=== PATIENT | male | born 1965 | race Caucasian/White ===

== ENCOUNTER → 2016-12-04 | Outpatient (CLI) | payer BC ==
--- NOTE | 2016-12-04 16:44 | KCIC ---
CHEST PA LATERAL, RIBS LEFT, THORACIC SPINE 3V History: Acute left-sided thoracic back pain. Left rib pain. Comparison: None. Findings: The cardiomediastinal silhouette is normal. Pulmonary vasculature is normal. There is right middle lobe airspace disease. No pleural effusion or pneumothorax is seen. No acute left rib fracture. A nondisplaced or subtle rib fracture could be obscured. Minimal right convexity thoracic scoliosis. The vertebral body height and alignment are maintained on the lateral view. The paravertebral stripes are submitted. The prevertebral soft tissues are normal on the swimmer's view. IMPRESSION: 1. Right middle lobe airspace disease may be pneumonia or atelectasis. Correlate to any respiratory symptoms. Radiographic follow-up to resolution is recommended. 2. No acute vertebral body compression fracture or rib fracture. Electronically signed by: Pranav Pham MD (12/04/2016 4:41 PM)
== END | disposition home or self-care (01) ==
LOC: KCIC 15:15
PROVIDERS: ATTEND Physician Assistant Medical
DX: M41.34 Thoracogenic scoliosis, thoracic region (principal)
CPT/HCPCS: 71020; 71100; 72072

== ENCOUNTER → 2016-12-25 | Outpatient (CLI) | payer BC ==
--- NOTE | 2016-12-25 12:11 | KCIC ---
CHEST PA LATERAL History: Productive cough and left lower rib pain. Abnormal prior chest radiograph. Comparison: Two-view chest December 04, 2016. Findings: The cardiomediastinal silhouette is normal. Pulmonary vasculature is normal. Right middle lobe airspace disease is not significant changed. Lungs are otherwise clear. No pleural effusion or pneumothorax is seen. There is no acute bone abnormality. IMPRESSION: No significant change of right middle lobe pneumonia or atelectasis. Radiographic follow up to resolution is recommended to exclude malignancy. Electronically signed by: Pranav Pham MD (12/25/2016 12:08 PM)
== END | disposition home or self-care (01) ==
LOC: KCIC 11:48
PROVIDERS: ATTEND Physician Assistant Medical
DX: R05 Cough (principal); R07.81 Pleurodynia
CPT/HCPCS: 71020

== ENCOUNTER → 2016-12-27 | Outpatient (CLI) | payer BC ==
--- NOTE | 2016-12-27 16:08 | KCIC ---
AP lateral lumbar spine Indication:Low back pain Findings: Alignment and curvature are within normal limits. No compression deformities are identified. The disc space heights are well-maintained. The sacroiliac joints are symmetric, open, and corticated. Impression: No compression fracture or malalignment. Electronically signed by: Morgan Hallman MD (12/27/2016 4:05 PM)
--- NOTE | 2016-12-27 16:14 | KCIC ---
AP and lateral thoracic spine Indication: Back pain Findings: Alignment and curvature of the thoracic spine are within normal limits. Evaluation of the cervicothoracic junction is limited due to overlying shoulder anatomy. No compression fractures are identified. The disc space heights are well-preserved. Visualized lung ward are clear. Impression: Unremarkable exam of the thoracic spine. Electronically signed by: Morgan Hallman MD (12/27/2016 4:11 PM)
== END | disposition home or self-care (01) ==
LOC: KCIC 15:19
PROVIDERS: ATTEND Physician Assistant Medical
DX: M54.5 Low back pain (principal); M54.6 Pain in thoracic spine
CPT/HCPCS: 72072; 72110

== ENCOUNTER → 2017-01-03 | Outpatient (CLI) | payer BC ==
[~2017-01-03] MED LIST: IOHEXOL 300 MG/ML 100ML VIAL. IV ONE
--- NOTE | 2017-01-03 11:45 | KCIC ---
CT chest with contrast History: . Abnormal chest x-ray. Hemoptysis for one week. Smoker. Back pain for one month. Technique: After bolus of intravenous contrast, CT imaging was performed of the chest. Multiplanar reconstructions were obtained. Exposure: One or more of the following individualized dose reduction techniques were utilized for this examination: 1. Automated exposure control 2. Adjustment of the mA and/or kV according to patient size 3. Use of iterative reconstruction technique. Findings: Thoracic aorta: No evidence of an aneurysm or dissection. Great vessel origins:Patent Pulmonary arteries:Limited visualization due to technique, but no obvious large central embolism. Thyroid gland:Visualized aspect is unremarkable. Heart: No significant pericadial effusion. Pleural spaces: No significant effusion Right hilar mass is identified, measuring about 3.5 cm diameter. There is some soft tissue abnormality extends more peripherally into the right lower lobe may represent some additional lymphoid tissue. Small subcarinal mass or enlarged lymph node, is continuous with the hilar mass. In total, this measures about 7.5 cm maximum diameter. Mild consolidation of lung in the right lower lobe anteriorly. This may be postobstructive, as there is narrowing of the lower lobe bronchi as they extend through the right hilar mass described above. There is also attenuation of right lower lobe pulmonary arteries as they are directly surrounded by the mass. Mild posterior lower lobe atelectasis bilaterally. Bones: There is a left spinal mass, which destroys the posterior and left lateral aspect of the approximate T9 vertebral body, the left posterior elements, the left spinous process and the medial left rib. This has an aggressive appearance. The mass itself measures 4.7 cm diameter. This encroaches into the spinal canal and probably directly involves the spinal cord. Smaller destructive lesion is partially visualized at the approximate L2 vertebral body, which encroaches upon the anterior spinal canal. This also has an aggressive appearance. Small osteolytic lesion at the right first rib. Upper abdomen: Limited slices were obtained through the upper abdomen. Small lesion at the left kidney measures 15 mm and measures water density compatible with a cyst. Impression: 1. Right hilar and subcarinal mass. Primary malignant tumor or secondary metastatic lymph node neoplasm is the leading concern. Right lower lobe consolidation may be postobstructive in nature. There is some attenuation of the right lower lobe pulmonary arteries and bronchi as they traverse the tumor. 2. Aggressive destructive bone lesions compatible with metastatic tumor deposits. 3. A large destructive tumor or metastasis at approximately T9 encroaches upon the spinal canal with likely direct involvement of the spinal cord. MRI could further characterize the relationship of the tumor with the spinal cord. 4. Findings were discussed with Daniel in Luís Short's office at 1140 hours on 01/03/2017. Electronically signed by: Nile Crawford MD (01/03/2017 11:42 AM) [facility]
== END | disposition home or self-care (01) ==
LOC: KCIC CT 09:13
PROVIDERS: ATTEND Physician Assistant Medical
DX: R91.8 Other nonspecific abnormal finding of lung field (principal); R04.2 Hemoptysis
CPT/HCPCS: 71260; Q9967

== ENCOUNTER 2017-01-07 12:59 | Inpatient (IN) | payer BC ==
[~2017-01-07] VITALS: Ht 177.8 cm; Wt 70.8 kg
[2017-01-07] MEDS ORDERED: POLYETHYLENE GLYCOL 3350 17 GM PACKET. PO PRN (14:45)
[2017-01-07 15:00] VITALS: BP 159/109
[2017-01-07] MEDS: oxyCODONE/APAP 7.5/325 1 TAB TABLET PO PRN ×3 (15:24→21:11)
--- NOTE | 2017-01-07 15:26 | PDOC2 ---
CONSULT Date of Consult Date of Consult DATE: 01/07/17 TIME: 15:15 Reason for Consult Reason for Consult: lung mass Referring Physician Referring Physician: Dr Daugherty Identification/Chief Complaint Chief Complaint cough Problems: History of Present Illness Reason for Visit: Geovanna young is a pleasant 51-year-old male who has seen his primary care physician for persistent lower back pain which failed to resolve with pain medications and muscle relaxants. He also has been experiencing cold symptoms in June. B non-resolving. A few days ago he he also had an episode of hemoptysis. As been a smoker for 25 years up to one pack per day. He quit a few weeks ago. Denies any headaches or vomiting or diarrhea. Vocal weakness and no numbness. Patient was seen by my partner in the office today devolution of abnormal CT chest. I have personally reviewed the CT chest findings. Patient has a 3.5 cm right hilar mass is also subcarinal adenopathy and right lower lobe consolidation most likely on a postobstructive basis. Has left spinal mass at T9 level with destruction of T9 ,involvement of the spinal cord. The smaller L2 lesion. Also a lytic lesion in right first rib. As a result of these findings he is being directly admitted to the hospital for further evaluation. Past Medical History Cardiovascular: HTN Pulmonary: COPD GI: No pertinent hx Heme/Onc: No pertinent hx Psych: No pertinent hx Musculoskeletal: low back pain Rheumatologic: No pertinent hx Renal/: No pertinent hx Endocrine: No pertinent hx Dermatology: Other (boil right finger) Past Surgical History Past Surgical History: No pertinent history Family History Family History: Other (non contributary) Social History # pack years (25) Current Medications Current Medications Current Medications Fentanyl (Duragesic 50mcg/ Hr Patch) 1 patch Q3DAYS TD ; Start 01/07/17 at 16:00 Metoprolol Tartrate (Lopressor) 25 mg BID PO ; Start 01/07/17 at 21:00 Oxycodone/ Acetaminophen (Percocet 7.5/ 325) 1 tab Q3HRS PRN PO PAIN; Start 05/16 at 14:45 Lisinopril (Prinivil) 20 mg DAILY PO ; Start 01/08/17 at 09:00 Polyethylene Glycol (miraLAX PACKET) 17 gm BID PRN PO CONSTIPATION; Start 01/07 at 14:45 Active Scripts Active Reported No Known Medications Prior To Admisstion (Info) Each 1 Each Allergies Allergies: Coded Allergies: No Known Drug Allergies (Unverified , 01/03/17) Physical Exam General: Alert, Oriented X3 HEENT: Atraumatic Lungs: Clear to auscultation Heart: Regular rate Abdomen: Normal bowel sounds Extremities: No clubbing, No cyanosis Skin: No rashes Neuro: Normal gait Psych/Mental Status: Mental status NL MUSCULOSKELETAL: No joint tenderness Vitals VITALS Vital Signs Date Time Temp Pulse Resp B/P (MAP) Pulse Ox O2 Delivery O2 Flow Rate FiO2 01/07/17 15:00 98.3 88 18 159/109 (126) 94 Room Air 98.3 Assessment/Plan Assessment/Plan 1. Highly suspected stage IV bronchogenic cancer. 2. Abnormal CT of the chest with 3.5 cm right hilar mass, subcarinal adenopathy , right lower lobe postobstructive consolidation, these findings are highly suspicious for bronchogenic cancer. 3. Left spinal mass causing T9 destruction and involving the spinal cord. Patient so far has no symptoms of cord dysfunction 4. 25 years of tobacco use, suspect underlying COPD. Plan 1. Discussed with patient and aunt ,regarding the abnormal CT chest findings and need for diagnostic biopsy. They both agree to pursue with bronchoscopy. All risks and benefits were explained. 2. If bronchoscopy is nondiagnostic then CT-guided biopsy of the T9 spinal lesion can be performed. 3. Consult radiation oncology [facility] for T9 destruction lesion and impending spinal cord compression. 4. Patient will need a PET scan as an outpatient. 5. Would also recommend MRI of the thoracic and lumbar spine. 6. Consult medical oncology 7. Further recommendations to follow Addend: Anesthesia not available for Bronch tomorrow. D/w Patient and IR. ct guided biopsy of spinal mass scheduled in BAM Forrest MD Jan 07, 2017 15:26
[2017-01-07] MEDS: SERTRALINE 50 MG TABLET. PO SCH (15:29)
[2017-01-07 15:36] LABS: BASO % 0 % (0-3); EOS % 2 % (0-3); HEMATOCRIT 41.2 % (39.0-53.0); HEMOGLOBIN 13.9 g/dL (13.0-17.5); LYMPH # 1.5 x10^3/uL (1.0-4.8); LYMPH % 12 % (24-48); MEAN CORPUSCULAR HEMOGLOBIN 30 pg (25-35); MEAN CORPUSCULAR HGB CONC 34 g/dL (31-37); MEAN CORPUSCULAR VOLUME 88 fL (79-100); MONO % 8 % (0-9); NEUT % 78 % (31-73); PLATELET COUNT 288 x10^3/uL (140-400); RED CELL DISTRIBUTION WIDTH 13.8 % (11.5-14.5)
[2017-01-07] MEDS ORDERED: fentaNYL 50MCG/HR PATCH 1 PATCH PATCH.TD72 TD SCH (16:00)
[2017-01-07 16:07] LABS: ALBUMIN 3.2 g/dL (3.4-5.0); ALBUMIN/GLOBULIN RATIO 0.7 (1.0-1.7); CALCIUM 9.4 mg/dL (8.5-10.1); CREATININE 0.9 mg/dL (0.7-1.3); GFR 88.6; POTASSIUM 3.8 mmol/L (3.5-5.1); TOTAL BILIRUBIN 0.3 mg/dL (0.2-1.0); TOTAL PROTEIN 7.6 g/dL (6.4-8.2)
[2017-01-07 16:09] LABS: INR 1.1 (0.8-1.1); PROTHROMBIN TIME PATIENT 13.3 SEC (11.7-14.0)
[2017-01-07 16:14] LABS: BILIRUBIN,URINE NEGATIVE (NEG); GLUCOSE,URINE NEGATIVE (NEG); NITRITE,URINE NEGATIVE (NEG); PROTEIN,URINE NEGATIVE (NEG-TRACE)
[2017-01-07 16:20] LABS: BACTERIA,URINE 0 /HPF (0-FEW); RBC,URINE RARE /HPF (0-2); SQUAMOUS EPITHELIAL CELL,UR OCC /LPF; WBC,URINE 0 /HPF (0-4)
--- NOTE | 2017-01-07 16:36 | PDOC ---
Provider Note Provider Note 01/07/2017 Full consult to follow 51 smoker with new dx of st IV bronchogenic carcinoma (T2 N2 M1) of right lung with bulky mass left side of T9 with encroachment into canal and met into vert body of L2 seen on CT 01/03/2017. Currently has only back pain with no LE numbness tingling or weakness. No chest sxs currently Weight and appetite ok. Plan: MRI brain and T spine tonight. Bronch or CT biopsy tomorrow. Anticipate beginning palliative T and L spine radiation (+/- dexamethasone) after MRI reviewed. Dr Little or Jon will see regarding palliative systemic treatment which will be dependent on outcome of biopsy result. Discussed with Dr Gomez, patient and his aunt. THOM DIEZ MD Jan 07, 2017 16:36
[2017-01-07] MEDS ORDERED: GADOBUTROL 7.5 MMOL/7.5 ML VIAL IV ONE (17:45)
[2017-01-07] MEDS: hydroCHLOROthiazide 25 MG TABLET PO SCH (18:28)
[2017-01-07] MEDS ORDERED: LISI1TAB7 PO (19:13)
[2017-01-07] MEDS ORDERED: SULF1TAB23 PO (19:15)
[2017-01-07] MEDS ORDERED: METO25TA4 PO (19:15)
[2017-01-07] MEDS ORDERED: BACL10TA PO (19:15)
[2017-01-07] MEDS ORDERED: HYDR-2762 PO (19:15)
[2017-01-07 20:33] VITALS: BP 173/114
[2017-01-07] MEDS: SMZ/TMP 400/80MG TABLET. PO SCH (20:56)
[2017-01-07] MEDS: METOPROLOL TART IMMED RELEASE 25 MG TABLET. PO SCH (20:57)
[2017-01-07 23:00] VITALS: BP 125/82
[2017-01-08] VITALS (12 sets, daily range): BP systolic 111–162; BP diastolic 69–106
[2017-01-08] MEDS: oxyCODONE/APAP 7.5/325 1 TAB TABLET PO PRN ×5 (01:56→21:53)
--- NOTE | 2017-01-08 08:34 | PDOC1 ---
History and Physical Date of Admission Date of Admission DATE: 01/07/17 TIME: 08:32 Past Medical History Cardiovascular: HTN Pulmonary: COPD GI: No pertinent hx Heme/Onc: No pertinent hx Psych: No pertinent hx Musculoskeletal: low back pain Rheumatologic: No pertinent hx Renal/: No pertinent hx Endocrine: No pertinent hx Dermatology: Other (boil right finger) Past Surgical History Past Surgical History: No pertinent history Family History Family History: Other (non contributary) Social History Smoke: # pack years (25) Current Medications Current Medications Current Medications Fentanyl (Duragesic 50mcg/ Hr Patch) 1 patch Q3DAYS TD Last administered on 15:24; Start 01/07/17 at 16:00 Metoprolol Tartrate (Lopressor) 25 mg BID PO Last administered on 01/07/17 20: 57; Start 01/07/17 at 21:00 Oxycodone/ Acetaminophen (Percocet 7.5/ 325) 1 tab Q3HRS PRN PO PAIN Last administered on 01/08/17 01:56; Start 01/07/17 at 14:45 Lisinopril (Prinivil) 20 mg DAILY PO ; Start 01/08/17 at 09:00 Polyethylene Glycol (miraLAX PACKET) 17 gm BID PRN PO CONSTIPATION; Start 01/07 at 14:45 Sertraline HCl (Zoloft) 50 mg DAILY PO Last administered on 01/07/17 15:29; Start 01/07/17 at 16:00 Hydrochlorothiazide (Hydrodiuril) 25 mg DAILY PO Last administered on 18:28; Start 01/07/17 at 17:00 Gadobutrol (Gadavist) 7 mmol 1X ONCE IV Last administered on 01/07/17 18:01; Start 01/07/17 at 17:45; Stop 01/07/17 at 17:46; Status DC Trimethoprim/ Sulfamethoxazole (Bactrim Ss) 2 tab BID PO Last administered on 20:56; Start 01/07/17 at 21:00 Active Scripts Active Reported Bactrim 400-80 Mg Tablet (Sulfamethoxazole/Trimethoprim) 1 Each Tablet 2 Tab PO BID Baclofen 10 Mg Tablet 1 Tab PO TID Hydrocodone-Apap 7.5-325 (Hydrocodone Bit/Acetaminophen) 1 Each Tablet 1 Tab PO PRN Q6HRS PRN Metoprolol Tartrate 25 Mg Tablet 1 Tab PO BID Lisinopril-Hctz 20-25 Mg Tab (Lisinopril/Hydrochlorothiazide) 1 Each Tablet 1 Tab PO DAILY No Known Medications Prior To Admisstion (Info) Each 1 Each MC Allergies Allergies: Coded Allergies: No Known Drug Allergies (Unverified , 01/03/17) Vitals Vitals Vital Signs Date Time Temp Pulse Resp B/P (MAP) Pulse Ox O2 Delivery O2 Flow Rate FiO2 01/08/17 03:00 16 Room Air 01/07/17 23:00 97.9 82 125/82 (96) 92 97.9 Labs Labs Laboratory Tests Test 01/07/17 15:20 01/07/17 16:00 White Blood Count 12.0 x10^3/uL (4.0-11.0) Red Blood Count 4.70 x10^6/uL (4.30-5.70) Hemoglobin 13.9 g/dL (13.0-17.5) Hematocrit 41.2 % (39.0-53.0) Mean Corpuscular Volume 88 fL (79-100) Mean Corpuscular Hemoglobin 30 pg (25-35) Mean Corpuscular Hemoglobin Concent 34 g/dL (31-37) Red Cell Distribution Width 13.8 % (11.5-14.5) Platelet Count 288 x10^3/uL (140-400) Neutrophils (%) (Auto) 78 % (31-73) Lymphocytes (%) (Auto) 12 % (24-48) Monocytes (%) (Auto) 8 % (0-9) Eosinophils (%) (Auto) 2 % (0-3) Basophils (%) (Auto) 0 % (0-3) Neutrophils # (Auto) 9.3 x10^3uL (1.8-7.7) Lymphocytes # (Auto) 1.5 x10^3/uL (1.0-4.8) Monocytes # (Auto) 1.0 x10^3/uL (0.0-1.1) Eosinophils # (Auto) 0.2 x10^3/uL (0.0-0.7) Basophils # (Auto) 0.0 x10^3/uL (0.0-0.2) Prothrombin Time 13.3 SEC (11.7-14.0) Prothromb Time International Ratio 1.1 (0.8-1.1) Sodium Level 138 mmol/L (136-145) Potassium Level 3.8 mmol/L (3.5-5.1) Chloride Level 99 mmol/L (98-107) Carbon Dioxide Level 27 mmol/L (21-32) Anion Gap 12 (6-14) Blood Urea Nitrogen 10 mg/dL (8-26) Creatinine 0.9 mg/dL (0.7-1.3) Estimated GFR (Cockcroft-Gault) 88.6 BUN/Creatinine Ratio 11 (6-20) Glucose Level 107 mg/dL (70-99) Calcium Level 9.4 mg/dL (8.5-10.1) Total Bilirubin 0.3 mg/dL (0.2-1.0) Aspartate Amino Transf (AST/SGOT) 18 U/L (15-37) Alanine Aminotransferase (ALT/SGPT) 35 U/L (16-63) Alkaline Phosphatase 70 U/L (46-116) Total Protein 7.6 g/dL (6.4-8.2) Albumin 3.2 g/dL (3.4-5.0) Albumin/Globulin Ratio 0.7 (1.0-1.7) Urine Collection Type Unknown Urine Color Straw Urine Clarity Clear Urine pH 7.0 Urine Specific [place] <=1.005 Urine Protein Negative mg/dL (NEG-TRACE) Urine Glucose (UA) Negative mg/dL (NEG) Urine Ketones (Stick) Negative mg/dL (NEG) Urine Blood Negative (NEG) Urine Nitrite Negative (NEG) Urine Bilirubin Negative (NEG) Urine Urobilinogen Dipstick 1.0 mg/dL (0.2 mg/dL) Urine Leukocyte Esterase Negative (NEG) Urine RBC Rare /HPF (0-2) Urine WBC 0 /HPF (0-4) Urine Squamous Epithelial Cells Occ /LPF Urine Bacteria 0 /HPF (0-FEW) Laboratory Tests Test 01/07/17 15:20 01/07/17 16:00 White Blood Count 12.0 x10^3/uL (4.0-11.0) Red Blood Count 4.70 x10^6/uL (4.30-5.70) Hemoglobin 13.9 g/dL (13.0-17.5) Hematocrit 41.2 % (39.0-53.0) Mean Corpuscular Volume 88 fL (79-100) Mean Corpuscular Hemoglobin 30 pg (25-35) Mean Corpuscular Hemoglobin Concent 34 g/dL (31-37) Red Cell Distribution Width 13.8 % (11.5-14.5) Platelet Count 288 x10^3/uL (140-400) Neutrophils (%) (Auto) 78 % (31-73) Lymphocytes (%) (Auto) 12 % (24-48) Monocytes (%) (Auto) 8 % (0-9) Eosinophils (%) (Auto) 2 % (0-3) Basophils (%) (Auto) 0 % (0-3) Neutrophils # (Auto) 9.3 x10^3uL (1.8-7.7) Lymphocytes # (Auto) 1.5 x10^3/uL (1.0-4.8) Monocytes # (Auto) 1.0 x10^3/uL (0.0-1.1) Eosinophils # (Auto) 0.2 x10^3/uL (0.0-0.7) Basophils # (Auto) 0.0 x10^3/uL (0.0-0.2) Prothrombin Time 13.3 SEC (11.7-14.0) Prothromb Time International Ratio 1.1 (0.8-1.1) Sodium Level 138 mmol/L (136-145) Potassium Level 3.8 mmol/L (3.5-5.1) Chloride Level 99 mmol/L (98-107) Carbon Dioxide Level 27 mmol/L (21-32) Anion Gap 12 (6-14) Blood Urea Nitrogen 10 mg/dL (8-26) Creatinine 0.9 mg/dL (0.7-1.3) Estimated GFR (Cockcroft-Gault) 88.6 BUN/Creatinine Ratio 11 (6-20) Glucose Level 107 mg/dL (70-99) Calcium Level 9.4 mg/dL (8.5-10.1) Total Bilirubin 0.3 mg/dL (0.2-1.0) Aspartate Amino Transf (AST/SGOT) 18 U/L (15-37) Alanine Aminotransferase (ALT/SGPT) 35 U/L (16-63) Alkaline Phosphatase 70 U/L (46-116) Total Protein 7.6 g/dL (6.4-8.2) Albumin 3.2 g/dL (3.4-5.0) Albumin/Globulin Ratio 0.7 (1.0-1.7) Urine Collection Type Unknown Urine Color Straw Urine Clarity Clear Urine pH 7.0 Urine Specific [place] <=1.005 Urine Protein Negative mg/dL (NEG-TRACE) Urine Glucose (UA) Negative mg/dL (NEG) Urine Ketones (Stick) Negative mg/dL (NEG) Urine Blood Negative (NEG) Urine Nitrite Negative (NEG) Urine Bilirubin Negative (NEG) Urine Urobilinogen Dipstick 1.0 mg/dL (0.2 mg/dL) Urine Leukocyte Esterase Negative (NEG) Urine RBC Rare /HPF (0-2) Urine WBC 0 /HPF (0-4) Urine Squamous Epithelial Cells Occ /LPF Urine Bacteria 0 /HPF (0-FEW) VTE Prophylaxis Ordered VTE Prophylaxis Devices: No VTE Pharmacological Prophylaxi: No Assessment/Plan Assessment/Plan R hilar mass per ct, also L parathoracic mass w/ T spine destruction, likely lung CA / mets- w/u in progress, pain control, consults done, bronch for tissue dx MANAS GAINES MD Jan 08, 2017 08:34
[2017-01-08] MEDS: SMZ/TMP 400/80MG TABLET. PO SCH ×2 (09:00→21:53)
[2017-01-08] MEDS: METOPROLOL TART IMMED RELEASE 25 MG TABLET. PO SCH ×2 (09:00→21:54)
[2017-01-08] MEDS: SERTRALINE 50 MG TABLET. PO SCH (09:00)
[2017-01-08] MEDS: LISINOPRIL 20 MG TABLET PO SCH (09:00)
[2017-01-08] MEDS: hydroCHLOROthiazide 25 MG TABLET PO SCH (09:00)
--- NOTE | 2017-01-08 09:06 | RAD ---
INDICATION: Lung cancer with T9 mass, staging. TECHNIQUE: Sagittal T1, axial T1, axial T2, axial FLAIR, axial T2 gradient, diffusion imaging with ADC map, postcontrast axial, and postcontrast coronal sequences are provided. 7 mL of intravenous Gadavist was administered without complication. No comparison is available. FINDINGS: The ventricles and sulci are within normal limits for age. There is no acute intracranial hemorrhage or extra-axial fluid collection. There is no mass effect or midline shift. There is no restricted diffusion to suggest an acute infarct. There is no pathologic enhancement. Clival marrow signal is preserved. There is subtle T1 hypointensity within the calvarium overlying the right frontal lobe, suspicious given lesions noted in the spine. There are 2 additional questionable hyperintensities, subtle, within the calvarium overlying the high left and right frontal lobes. Consider bone scintigraphy to evaluate for extent of skeletal metastases. There is a small retention cyst in the right maxillary sinus. There is minimal ethmoid mucosal thickening and frontal mucosal thickening. IMPRESSION: 1. No evidence of intraparenchymal metastasis. 2. Potential calvarial metastases, subtle. They are suspicious given findings in the thoracic spine. Consider bone scintigraphy. Electronically signed by: Eligio Fish MD (01/08/2017 9:02 AM) [facility]
--- NOTE | 2017-01-08 09:16 | PDOC2 ---
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 He has significant back pain with no neurologic deficits. He has been admitted for further evaluation and management. We were asked to see him regarding the role of palliative radiation in his care Mr. Meng Membreno is a 51-year-old gentleman who developed cold related symptoms in June through July 2016 that failed to clear. Following this while moving a refrigerator he developed severe low back pain he was treated with oral analgesic and muscle relaxant therapies with significant improvement. Two weeks later he had a significant cough while at work he then felt something pop in his back and had recurrent low back pain. Pain is been persistent through this time and partially controlled with his current analgesic therapy. He denies lower extremity numbness, tingling or weakness. He has had no bowel or bladder incontinence. Weight and appetite have been stable. He has had no significant cough, chest pain or hemoptysis. 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 He did undergo a chest x-ray on January 03, 2017 this revealed possible right middle lobe pneumonia or atelectasis Plain x-ray of the thoracic spine revealed loss of the pedicle and lytic disease on the left side of T9 CT scan of the chest on January 03, 2017 revealed right hilar and subcarinal adenopathy consistent with primary bronchogenic malignancy destructive mass involving the left side of T9 vertebral body extending through the pedicle and into the posterior element encroaching upon the spinal canal as well as a mass in the posterior aspect of the L2 vertebral body with preservation of the canal on my review no other metastatic disease was seen He now has been admitted for MRI imaging and biopsy by bronchoscopy or CT- guided needle biopsy. Past medical history hypertension. No other significant illnesses or surgeries. Medications: see hospital chart Allergies; none Family history: mother had lung cancer and surgery 11 years ago and survived and is alive at age 82, brother from progressive metastatic lung cancer age 56, father from esophageal cancer at age 71. Social history: single never . He has a fianc he met in the [facility] she is coming here shortly for marriage. He has no children. 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 He smoked 1/2-1 pack a day for 30 years. No alcohol use. 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 Physical examination revealed a pleasant alert cooperative gentleman distress. HEENT examination was unremarkable. He had no scleral icterus. Lymph nodes he had no palpable cervical or supraclavicular adenopathy Lungs were clear to percussion Heart was regular Abdominal examination was unremarkable Extremities reveal no clubbing cyanosis or edema He had percussion tenderness in this low thoracic spine Lower extremity strength reflexes and sensation were entirely intact gait was normal with no antalgia. He had no other neurologic deficits seen Laboratory studies hemoglobin 13.9 white blood count 12,000 platelet count 288, 000. chemistry panel was within normal limits creatinine 0.9 calcium 9.4 In summary my impression is that of stage IV (T2 N2 M1) bronchogenic carcinoma in the right lung with significant disease involvement at T9 with soft tissue mass encroaching into the canal worrisome for impending cord compression on initial CT imaging he has significant pain at that site. He has no neurologic deficits At this time I recommend screening MRI scan of the brain in addition to the thoracic and lumbar MRI imaging already ordered. He also requires biopsy confirmation of his disease to confirm malignancy and assess cell type. This may be done by bronchoscopy or CT guidance. We anticipate initiating palliative radiation therapy he is T9 and L2 based metastatic lesions. His MRI imaging may modify this treatment recommendation. I discussed the overall diagnosis with the patient and his aunt Jonelle. I reviewed this with Dr.Khan lawrence as well. I anticipate that he will also see Dr Little or Jon to address systemic treatment. Thank you for allowing us to participate in his evaluation. THOM DIEZ MD Jan 08, 2017 09:16
--- NOTE | 2017-01-08 09:34 | RAD ---
MRI of the thoracic and lumbar spine without and with contrast 01/07/2017 CLINICAL HISTORY: Lung cancer with mass at T9 and mid and low back pain. Technique: Unenhanced T1-weighted and T2-weighted sagittal and axial and inversion recovery sagittal images of the thoracic and lumbar spine were obtained. After the intravenous administration of 7 cc of Gadavist, enhanced T1-weighted sagittal and axial images of the thoracic and lumbar spine were obtained. FINDINGS: Very mild S-shaped curvature of the thoracolumbar spine is seen. An expansile mass is seen centered at the left pedicle/lamina of the T9 vertebrae. This mass extends anterior, posteriorly, medially and laterally and measures 4.7 x 4.4 x 4.4 cm in AP, transverse and craniocaudal dimensions. This mass extends to involve the proximal left T9 rib. It extends into the left lateral and left posterior epidural space resulting in moderate to severe left-sided central spinal canal stenosis and severe left lateral recess stenosis. It extends into the left T8-9 and left T9-T10 neural foramen resulting in severe neural foraminal stenosis. It is consistent with a metastasis. No additional metastasis is seen involving the thoracic spine. A 3.7 cm metastasis is seen involving the L2 vertebral body. Mild extension of tumor into the anterior epidural space, left greater than right is seen. This measures 4 mm in AP diameter. It effaces the anterior CSF without resulting in significant central spinal canal stenosis. No additional metastasis is seen involving the lumbar vertebrae. Degenerative changes are seen involving all of the disks of the thoracic spine. Degenerative signal changes are seen within the marrow surrounding these discs. Hemangiomas are seen on the T3, T6 and T10 vertebral bodies. These measure 5 mm to 1 cm in size. No area of abnormal signal intensity is seen involving the thoracic spinal cord. Degenerative changes are seen on the axial images involving the thoracic disc spaces. These consist of minimal to mild generalized disc bulges and degenerative changes involving the facet joints. A right paracentral focal disc protrusion is seen at the T4-5 level. This measures 3 mm in AP diameter. A right paracentral focal disc protrusion is seen at T8-9 which measures 3.5 mm in AP diameter. It helps contribute to mild to moderate right-sided cervical spinal canal stenosis at T8-9. Degenerative signal changes are seen involving the L5-S1 disc. The conus medullaris is normal morphology, position, and signal characteristics. The changes of mild degenerative disc disease are seen involving the lumbar disc spaces. These consist of minimal to mild generalized disc bulges and degenerative changes involving the facet joints. These findings do not result in significant central spinal canal or neural foraminal stenosis at any level. IMPRESSION: Metastasis are seen involving the T9 and L2 vertebrae. The T9 metastasis extends to involve the posterior and left lateral epidural space resulting in moderate to severe left-sided central spinal canal stenosis and severe left lateral recess stenosis along with severe left T8-9 and T9-T10 neural foraminal stenosis. No additional metastasis is seen. Electronically signed by: Vinnie Yates MD (01/08/2017 9:31 AM) [facility] [id number]
[2017-01-08] MEDS ORDERED: LIDOCAINE 1% / SOD BICARB 8.4% 20 ML VIAL. IJ ONE ×2 (10:28→11:15)
[2017-01-08] MEDS ORDERED: fentaNYL PF VIAL 100 MCG/2 ML VIAL ONE (10:52)
[2017-01-08] MEDS ORDERED: MIDAZOLAM HCL/PF 5 MG/5 ML VIAL. ONE (10:52)
[2017-01-08] MEDS ORDERED: MIDAZOLAM HCL/PF 5 MG/5 ML VIAL. IV ONE (11:15)
[2017-01-08] MEDS ORDERED: fentaNYL PF VIAL 100 MCG/2 ML VIAL IV ONE (11:15)
--- NOTE | 2017-01-08 11:39 | PDOC ---
BRIEF OPERATIVE NOTE Date: Jan 08, 2017 Pre-Op Diagnosis Metastatic lung cancer with T9 mass Post-Op Diagnosis Same Procedure Performed Biopsy of T9 vertebral body mass Surgeon Carol Geomorphology Teacher None EBL 3 Anesthesiologist none Anesthesia Type: Local, Conscious Sedation Specimens Obtained 18 gauge core biopsy samples Findings mass unchanged from recent ct no immediate complication no significant bleeding Complications none KIERRA KELLOGG MD Jan 08, 2017 11:39
--- NOTE | 2017-01-08 12:03 | RAD ---
CT-guided biopsy of T9 left-sided vertebral mass 01/08/2017 Indication: Destructive mass involving the T9 vertebra consistent with metastatic lung cancer Discussion: The risks and benefits of the procedure including but not limited to bleeding, pain, acute neurological injury including paralysis, and infection were discussed the patient. Informed consent was obtained. Patient was brought to the CT suite and placed in the prone position. A timeout procedure was performed. The posterior thorax was prepped and draped using maximum sterile barrier technique. CT imaging confirms a destructive expansile mass arising from the left side of the T9 vertebra. Once appropriate site for skin entry been selected 1% lidocaine without epinephrine was administered for local anesthesia. A 17-gauge guiding needle was advanced into the periphery of the mass. 2 18-gauge core biopsy samples were obtained. The needles were removed and manual pressure held. No immediate complications were identified. The patient remained stable throughout the exam. The procedures performed conscious sedation including continuous cardiopulmonary monitoring via a dedicated sedation nurse. Sedation time: 25 minutes Impression: Successful CT-guided biopsy of expansile predominantly lytic mass in the T9 vertebra
--- NOTE | 2017-01-08 12:57 | PDOC ---
PULMONARY PROGRESS NOTES Subjective s/p IR guided biopsy of T9 mass Vitals Vital Signs Date Time Temp Pulse Resp B/P (MAP) Pulse Ox O2 Delivery O2 Flow Rate FiO2 01/08/17 12:52 98 Room Air 2.0 01/08/17 12:30 98.4 86 22 117/86 (96) 98.4 General: Alert, Oriented X4, No acute distress Lungs: Other (decrease bs) Cardiovascular: S1 Abdomen: Soft Neuro Exam: Alert Extremities: No Edema Skin: Warm Labs Laboratory Tests Test 01/07/17 15:20 01/07/17 16:00 White Blood Count 12.0 x10^3/uL (4.0-11.0) Red Blood Count 4.70 x10^6/uL (4.30-5.70) Hemoglobin 13.9 g/dL (13.0-17.5) Hematocrit 41.2 % (39.0-53.0) Mean Corpuscular Volume 88 fL (79-100) Mean Corpuscular Hemoglobin 30 pg (25-35) Mean Corpuscular Hemoglobin Concent 34 g/dL (31-37) Red Cell Distribution Width 13.8 % (11.5-14.5) Platelet Count 288 x10^3/uL (140-400) Neutrophils (%) (Auto) 78 % (31-73) Lymphocytes (%) (Auto) 12 % (24-48) Monocytes (%) (Auto) 8 % (0-9) Eosinophils (%) (Auto) 2 % (0-3) Basophils (%) (Auto) 0 % (0-3) Neutrophils # (Auto) 9.3 x10^3uL (1.8-7.7) Lymphocytes # (Auto) 1.5 x10^3/uL (1.0-4.8) Monocytes # (Auto) 1.0 x10^3/uL (0.0-1.1) Eosinophils # (Auto) 0.2 x10^3/uL (0.0-0.7) Basophils # (Auto) 0.0 x10^3/uL (0.0-0.2) Prothrombin Time 13.3 SEC (11.7-14.0) Prothromb Time International Ratio 1.1 (0.8-1.1) Sodium Level 138 mmol/L (136-145) Potassium Level 3.8 mmol/L (3.5-5.1) Chloride Level 99 mmol/L (98-107) Carbon Dioxide Level 27 mmol/L (21-32) Anion Gap 12 (6-14) Blood Urea Nitrogen 10 mg/dL (8-26) Creatinine 0.9 mg/dL (0.7-1.3) Estimated GFR (Cockcroft-Gault) 88.6 BUN/Creatinine Ratio 11 (6-20) Glucose Level 107 mg/dL (70-99) Calcium Level 9.4 mg/dL (8.5-10.1) Total Bilirubin 0.3 mg/dL (0.2-1.0) Aspartate Amino Transf (AST/SGOT) 18 U/L (15-37) Alanine Aminotransferase (ALT/SGPT) 35 U/L (16-63) Alkaline Phosphatase 70 U/L (46-116) Total Protein 7.6 g/dL (6.4-8.2) Albumin 3.2 g/dL (3.4-5.0) Albumin/Globulin Ratio 0.7 (1.0-1.7) Urine Collection Type Unknown Urine Color Straw Urine Clarity Clear Urine pH 7.0 Urine Specific [place] <=1.005 Urine Protein Negative mg/dL (NEG-TRACE) Urine Glucose (UA) Negative mg/dL (NEG) Urine Ketones (Stick) Negative mg/dL (NEG) Urine Blood Negative (NEG) Urine Nitrite Negative (NEG) Urine Bilirubin Negative (NEG) Urine Urobilinogen Dipstick 1.0 mg/dL (0.2 mg/dL) Urine Leukocyte Esterase Negative (NEG) Urine RBC Rare /HPF (0-2) Urine WBC 0 /HPF (0-4) Urine Squamous Epithelial Cells Occ /LPF Urine Bacteria 0 /HPF (0-FEW) Laboratory Tests Test 01/07/17 15:20 01/07/17 16:00 White Blood Count 12.0 x10^3/uL (4.0-11.0) Red Blood Count 4.70 x10^6/uL (4.30-5.70) Hemoglobin 13.9 g/dL (13.0-17.5) Hematocrit 41.2 % (39.0-53.0) Mean Corpuscular Volume 88 fL (79-100) Mean Corpuscular Hemoglobin 30 pg (25-35) Mean Corpuscular Hemoglobin Concent 34 g/dL (31-37) Red Cell Distribution Width 13.8 % (11.5-14.5) Platelet Count 288 x10^3/uL (140-400) Neutrophils (%) (Auto) 78 % (31-73) Lymphocytes (%) (Auto) 12 % (24-48) Monocytes (%) (Auto) 8 % (0-9) Eosinophils (%) (Auto) 2 % (0-3) Basophils (%) (Auto) 0 % (0-3) Neutrophils # (Auto) 9.3 x10^3uL (1.8-7.7) Lymphocytes # (Auto) 1.5 x10^3/uL (1.0-4.8) Monocytes # (Auto) 1.0 x10^3/uL (0.0-1.1) Eosinophils # (Auto) 0.2 x10^3/uL (0.0-0.7) Basophils # (Auto) 0.0 x10^3/uL (0.0-0.2) Prothrombin Time 13.3 SEC (11.7-14.0) Prothromb Time International Ratio 1.1 (0.8-1.1) Sodium Level 138 mmol/L (136-145) Potassium Level 3.8 mmol/L (3.5-5.1) Chloride Level 99 mmol/L (98-107) Carbon Dioxide Level 27 mmol/L (21-32) Anion Gap 12 (6-14) Blood Urea Nitrogen 10 mg/dL (8-26) Creatinine 0.9 mg/dL (0.7-1.3) Estimated GFR (Cockcroft-Gault) 88.6 BUN/Creatinine Ratio 11 (6-20) Glucose Level 107 mg/dL (70-99) Calcium Level 9.4 mg/dL (8.5-10.1) Total Bilirubin 0.3 mg/dL (0.2-1.0) Aspartate Amino Transf (AST/SGOT) 18 U/L (15-37) Alanine Aminotransferase (ALT/SGPT) 35 U/L (16-63) Alkaline Phosphatase 70 U/L (46-116) Total Protein 7.6 g/dL (6.4-8.2) Albumin 3.2 g/dL (3.4-5.0) Albumin/Globulin Ratio 0.7 (1.0-1.7) Urine Collection Type Unknown Urine Color Straw Urine Clarity Clear Urine pH 7.0 Urine Specific [place] <=1.005 Urine Protein Negative mg/dL (NEG-TRACE) Urine Glucose (UA) Negative mg/dL (NEG) Urine Ketones (Stick) Negative mg/dL (NEG) Urine Blood Negative (NEG) Urine Nitrite Negative (NEG) Urine Bilirubin Negative (NEG) Urine Urobilinogen Dipstick 1.0 mg/dL (0.2 mg/dL) Urine Leukocyte Esterase Negative (NEG) Urine RBC Rare /HPF (0-2) Urine WBC 0 /HPF (0-4) Urine Squamous Epithelial Cells Occ /LPF Urine Bacteria 0 /HPF (0-FEW) Medications Active Scripts Medications Dose Route/Sig Max Daily Dose Days Date Category Bactrim 400-80 Mg Tablet (Sulfamethoxazole/Trimethoprim) 1 Each Tablet 2 Tab PO BID 01/07/17 Reported Baclofen 10 Mg Tablet 1 Tab PO TID 01/07/17 Reported Hydrocodone-Apap 7.5-325 (Hydrocodone Bit/Acetaminophen) 1 Each Tablet 1 Tab PO PRN Q6HRS PRN 01/07/17 Reported Metoprolol Tartrate 25 Mg Tablet 1 Tab PO BID 01/07/17 Reported Lisinopril-Hctz 20-25 Mg Tab (Lisinopril/Hydrochlorothiazide) 1 Each Tablet 1 Tab PO DAILY 01/07/17 Reported No Known Medications Prior To Admisstion (Info) Each 1 Each MC 01/03/17 Reported Impression . 1. Highly suspected stage IV bronchogenic cancer. 2. Abnormal CT of the chest with 3.5 cm right hilar mass, subcarinal adenopathy , right lower lobe postobstructive consolidation, these findings are highly suspicious for bronchogenic cancer. 3. Left spinal mass causing T9 destruction and involving the spinal cord. Patient so far has no symptoms of cord dysfunction 4. 25 years of tobacco use, suspect underlying COPD. Plan . 1. Discussed with patient and mother. follow results of T9 mass biopsy 2. supportive care 3. Appreciate Dr Palomo recommendations 4. Patient will need a PET scan as an outpatient. 5. MRI of the thoracic and lumbar spine reviewed 6. chemo soon BAM MENCHACA MD Jan 08, 2017 12:57
--- NOTE | 2017-01-08 14:36 | PDOC2 ---
CONSULT Date of Consult Date of Consult DATE: 01/08/17 TIME: 14:25 Reason for Consult Reason for Consult: Lung mass Referring Physician Referring Physician: Dr Reynaldo Daugherty Identification/Chief Complaint Chief Complaint Lung mass Problems: History of Present Illness Reason for Visit: Mr. Meng Membreno is a 51-year-old gentleman who developed cold related symptoms in June through July 2016 that failed to clear. Following this while moving a refrigerator he developed severe low back pain he was treated with oral analgesic and muscle relaxant therapies with significant improvement. Two weeks later he had a significant cough while at work he then felt something pop in his back and had recurrent low back pain. Pain is been persistent through this time and partially controlled with his current analgesic therapy. He denies lower extremity numbness, tingling or weakness. He has had no bowel or bladder incontinence. Weight and appetite have been stable. He has had no significant cough, chest pain. He had hemoptysis 1 week prior to admission. 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 He did undergo a chest x-ray on January 03, 2017 this revealed possible right middle lobe pneumonia or atelectasis Plain x-ray of the thoracic spine revealed loss of the pedicle and lytic disease on the left side of T9 CT scan of the chest on January 03, 2017 revealed right hilar and subcarinal adenopathy consistent with primary bronchogenic malignancy destructive mass involving the left side of T9 vertebral body extending through the pedicle and into the posterior element encroaching upon the spinal canal as well as a mass in the posterior aspect of the L2 vertebral body with preservation of the canal on my review no other metastatic disease was seen He now has been admitted for MRI imaging and biopsy by bronchoscopy or CT- guided needle biopsy. Past medical history hypertension. No other significant illnesses or surgeries. Family history: mother had lung cancer and surgery 11 years ago and survived and is alive at age 82, brother from progressive metastatic lung cancer age 56, father from esophageal cancer at age 71. Social history: single never . He has a fianc he met in the [facility] she is coming here shortly for marriage. He has no children. 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 He smoked 1/2-1 pack a day for 30 years. No alcohol use. 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 Past Medical History Cardiovascular: HTN Pulmonary: COPD GI: No pertinent hx Heme/Onc: No pertinent hx Psych: No pertinent hx Musculoskeletal: low back pain Rheumatologic: No pertinent hx Renal/: No pertinent hx Endocrine: No pertinent hx Dermatology: Other (boil right finger) Past Surgical History Past Surgical History: No pertinent history Family History Family History: Other (non contributary) Social History # pack years (25) Current Medications Current Medications Current Medications Fentanyl (Duragesic 50mcg/ Hr Patch) 1 patch Q3DAYS TD Last administered on 15:24; Start 01/07/17 at 16:00 Metoprolol Tartrate (Lopressor) 25 mg BID PO Last administered on 01/08/17 09: 00; Start 01/07/17 at 21:00 Oxycodone/ Acetaminophen (Percocet 7.5/ 325) 1 tab Q3HRS PRN PO PAIN Last administered on 01/08/17 12:52; Start 01/07/17 at 14:45 Lisinopril (Prinivil) 20 mg DAILY PO Last administered on 01/08/17 09:00; Start 01/08/17 at 09:00 Polyethylene Glycol (miraLAX PACKET) 17 gm BID PRN PO CONSTIPATION; Start 01/07 at 14:45 Sertraline HCl (Zoloft) 50 mg DAILY PO Last administered on 01/07/17 15:29; Start 01/07/17 at 16:00 Hydrochlorothiazide (Hydrodiuril) 25 mg DAILY PO Last administered on 09:00; Start 01/07/17 at 17:00 Gadobutrol (Gadavist) 7 mmol 1X ONCE IV Last administered on 01/07/17 18:01; Start 01/07/17 at 17:45; Stop 01/07/17 at 17:46; Status DC Trimethoprim/ Sulfamethoxazole (Bactrim Ss) 2 tab BID PO Last administered on 20:56; Start 01/07/17 at 21:00 Lidocaine/Sodium Bicarbonate (Buffered Lidocaine 1%) 20 ml STK-MED ONCE IJ ; Start 01/08/17 at 10:28; Stop 01/08/17 at 10:29; Status DC Fentanyl Citrate (Fentanyl 2ml Vial) 100 mcg STK-MED ONCE .ROUTE ; Start at 10:52; Stop 01/08/17 at 10:53; Status DC Midazolam HCl (Versed) 5 mg STK-MED ONCE .ROUTE ; Start 01/08/17 at 10:52; Stop 01/08/17 at 10:53; Status DC Lidocaine/Sodium Bicarbonate (Buffered Lidocaine 1%) 20 ml 1X ONCE IJ Last administered on 01/08/17 11:15; Start 01/08/17 at 11:15; Stop 01/08/17 at 11:16 ; Status DC Midazolam HCl (Versed) 5 mg 1X ONCE IV Last administered on 01/08/17 11:21; Start 01/08/17 at 11:15; Stop 01/08/17 at 11:16; Status DC Fentanyl Citrate (Fentanyl 2ml Vial) 100 mcg 1X ONCE IV Last administered on 11:21; Start 01/08/17 at 11:15; Stop 01/08/17 at 11:16; Status DC Active Scripts Active Reported Bactrim 400-80 Mg Tablet (Sulfamethoxazole/Trimethoprim) 1 Each Tablet 2 Tab PO BID Baclofen 10 Mg Tablet 1 Tab PO TID Hydrocodone-Apap 7.5-325 (Hydrocodone Bit/Acetaminophen) 1 Each Tablet 1 Tab PO PRN Q6HRS PRN Metoprolol Tartrate 25 Mg Tablet 1 Tab PO BID Lisinopril-Hctz 20-25 Mg Tab (Lisinopril/Hydrochlorothiazide) 1 Each Tablet 1 Tab PO DAILY No Known Medications Prior To Admisstion (Info) Each 1 Each Allergies Allergies: Coded Allergies: No Known Drug Allergies (Unverified , 01/03/17) ROS Review of System A 12 point review of system was performed and pertinent positives are mentioned in the history and the rest of the system review is negative. Physical Exam General: Alert, Oriented X3, No acute distress HEENT: Atraumatic Lungs: Clear to auscultation Heart: Normal S1, Normal S2 Abdomen: Soft, No tenderness Extremities: No tenderness/swelling Skin: No rashes Neuro: Normal speech Psych/Mental Status: Mental status NL MUSCULOSKELETAL: No deformity Vitals VITALS Vital Signs Date Time Temp Pulse Resp B/P (MAP) Pulse Ox O2 Delivery O2 Flow Rate FiO2 01/08/17 13:04 69 18 123/79 (94) 96 Room Air 01/08/17 12:52 2.0 01/08/17 12:30 98.4 98.4 Labs Labs Laboratory Tests Test 01/07/17 15:20 01/07/17 16:00 White Blood Count 12.0 x10^3/uL (4.0-11.0) Red Blood Count 4.70 x10^6/uL (4.30-5.70) Hemoglobin 13.9 g/dL (13.0-17.5) Hematocrit 41.2 % (39.0-53.0) Mean Corpuscular Volume 88 fL (79-100) Mean Corpuscular Hemoglobin 30 pg (25-35) Mean Corpuscular Hemoglobin Concent 34 g/dL (31-37) Red Cell Distribution Width 13.8 % (11.5-14.5) Platelet Count 288 x10^3/uL (140-400) Neutrophils (%) (Auto) 78 % (31-73) Lymphocytes (%) (Auto) 12 % (24-48) Monocytes (%) (Auto) 8 % (0-9) Eosinophils (%) (Auto) 2 % (0-3) Basophils (%) (Auto) 0 % (0-3) Neutrophils # (Auto) 9.3 x10^3uL (1.8-7.7) Lymphocytes # (Auto) 1.5 x10^3/uL (1.0-4.8) Monocytes # (Auto) 1.0 x10^3/uL (0.0-1.1) Eosinophils # (Auto) 0.2 x10^3/uL (0.0-0.7) Basophils # (Auto) 0.0 x10^3/uL (0.0-0.2) Prothrombin Time 13.3 SEC (11.7-14.0) Prothromb Time International Ratio 1.1 (0.8-1.1) Sodium Level 138 mmol/L (136-145) Potassium Level 3.8 mmol/L (3.5-5.1) Chloride Level 99 mmol/L (98-107) Carbon Dioxide Level 27 mmol/L (21-32) Anion Gap 12 (6-14) Blood Urea Nitrogen 10 mg/dL (8-26) Creatinine 0.9 mg/dL (0.7-1.3) Estimated GFR (Cockcroft-Gault) 88.6 BUN/Creatinine Ratio 11 (6-20) Glucose Level 107 mg/dL (70-99) Calcium Level 9.4 mg/dL (8.5-10.1) Total Bilirubin 0.3 mg/dL (0.2-1.0) Aspartate Amino Transf (AST/SGOT) 18 U/L (15-37) Alanine Aminotransferase (ALT/SGPT) 35 U/L (16-63) Alkaline Phosphatase 70 U/L (46-116) Total Protein 7.6 g/dL (6.4-8.2) Albumin 3.2 g/dL (3.4-5.0) Albumin/Globulin Ratio 0.7 (1.0-1.7) Urine Collection Type Unknown Urine Color Straw Urine Clarity Clear Urine pH 7.0 Urine Specific [place] <=1.005 Urine Protein Negative mg/dL (NEG-TRACE) Urine Glucose (UA) Negative mg/dL (NEG) Urine Ketones (Stick) Negative mg/dL (NEG) Urine Blood Negative (NEG) Urine Nitrite Negative (NEG) Urine Bilirubin Negative (NEG) Urine Urobilinogen Dipstick 1.0 mg/dL (0.2 mg/dL) Urine Leukocyte Esterase Negative (NEG) Urine RBC Rare /HPF (0-2) Urine WBC 0 /HPF (0-4) Urine Squamous Epithelial Cells Occ /LPF Urine Bacteria 0 /HPF (0-FEW) Laboratory Tests Test 01/07/17 15:20 01/07/17 16:00 White Blood Count 12.0 x10^3/uL (4.0-11.0) Red Blood Count 4.70 x10^6/uL (4.30-5.70) Hemoglobin 13.9 g/dL (13.0-17.5) Hematocrit 41.2 % (39.0-53.0) Mean Corpuscular Volume 88 fL (79-100) Mean Corpuscular Hemoglobin 30 pg (25-35) Mean Corpuscular Hemoglobin Concent 34 g/dL (31-37) Red Cell Distribution Width 13.8 % (11.5-14.5) Platelet Count 288 x10^3/uL (140-400) Neutrophils (%) (Auto) 78 % (31-73) Lymphocytes (%) (Auto) 12 % (24-48) Monocytes (%) (Auto) 8 % (0-9) Eosinophils (%) (Auto) 2 % (0-3) Basophils (%) (Auto) 0 % (0-3) Neutrophils # (Auto) 9.3 x10^3uL (1.8-7.7) Lymphocytes # (Auto) 1.5 x10^3/uL (1.0-4.8) Monocytes # (Auto) 1.0 x10^3/uL (0.0-1.1) Eosinophils # (Auto) 0.2 x10^3/uL (0.0-0.7) Basophils # (Auto) 0.0 x10^3/uL (0.0-0.2) Prothrombin Time 13.3 SEC (11.7-14.0) Prothromb Time International Ratio 1.1 (0.8-1.1) Sodium Level 138 mmol/L (136-145) Potassium Level 3.8 mmol/L (3.5-5.1) Chloride Level 99 mmol/L (98-107) Carbon Dioxide Level 27 mmol/L (21-32) Anion Gap 12 (6-14) Blood Urea Nitrogen 10 mg/dL (8-26) Creatinine 0.9 mg/dL (0.7-1.3) Estimated GFR (Cockcroft-Gault) 88.6 BUN/Creatinine Ratio 11 (6-20) Glucose Level 107 mg/dL (70-99) Calcium Level 9.4 mg/dL (8.5-10.1) Total Bilirubin 0.3 mg/dL (0.2-1.0) Aspartate Amino Transf (AST/SGOT) 18 U/L (15-37) Alanine Aminotransferase (ALT/SGPT) 35 U/L (16-63) Alkaline Phosphatase 70 U/L (46-116) Total Protein 7.6 g/dL (6.4-8.2) Albumin 3.2 g/dL (3.4-5.0) Albumin/Globulin Ratio 0.7 (1.0-1.7) Urine Collection Type Unknown Urine Color Straw Urine Clarity Clear Urine pH 7.0 Urine Specific [place] <=1.005 Urine Protein Negative mg/dL (NEG-TRACE) Urine Glucose (UA) Negative mg/dL (NEG) Urine Ketones (Stick) Negative mg/dL (NEG) Urine Blood Negative (NEG) Urine Nitrite Negative (NEG) Urine Bilirubin Negative (NEG) Urine Urobilinogen Dipstick 1.0 mg/dL (0.2 mg/dL) Urine Leukocyte Esterase Negative (NEG) Urine RBC Rare /HPF (0-2) Urine WBC 0 /HPF (0-4) Urine Squamous Epithelial Cells Occ /LPF Urine Bacteria 0 /HPF (0-FEW) Assessment/Plan Assessment/Plan 1. Right hilar and subcarinal mass with evidence of metastatic disease to the T9 spine clinically consistent with stage IV lung cancer. I discussed with pulmonology. Agree to proceed with bronchoscopy or CT-guided biopsy. I discussed in detail with the patient regarding the clinical impression of lung cancer and the need for further investigation with a biopsy for histologic confirmation. This would also help define the type of lung cancer which would help in selecting systemic therapy. The patient was also anxious to know about the prognosis and I mentioned that this is consistent with stage IV malignancy which is incurable. 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 Agree to consult radiation oncology for palliative radiation. I will order bone scan per radiology recommendation. 3. Brain MRI did not reveal any evidence of metastatic disease. I d/w Dr Gomez MRI report 01/08/17 - Brain: No evidence of intraparenchymal metastasis. Potential calvarial metastases, subtle. They are suspicious given findings in the thoracic spine. Consider bone scintigraphy. T-S spine MRI: Metastasis are seen involving the T9 and L2 vertebrae. The T9 metastasis extends to involve the posterior and left lateral epidural space resulting in moderate to severe left-sided central spinal canal stenosis and severe left lateral recess stenosis along with severe left T8-9 and T9-T10 neural foraminal stenosis. No additional metastasis is seen. JACKIE BLACK MD Jan 08, 2017 14:36
[2017-01-08] MEDS ORDERED: ONDANSETRON PF 4 MG/2 ML VIAL. IV PRN (15:00)
--- NOTE | 2017-01-08 15:07 | PDOC ---
Provider Note Provider Note 51 y/ man with st IV(T2 N2 M1) bronchogenic carcinoma with significant met disease at T9 with extension into left side of spinal canal and L2 vert body. He has ongoing pain with no lower extremity weakness or sensory changes. He has just undergone CT bx of T9 mass. Doing well post procedure. Now simulated to T9 and L2 lesions within a singe treatment field from T8 to L3. First treatment done today. Plan a total of 10 treatments in total. Impression: Metastatic bronchogenic carcinoma. Palliative radiation treatment begun. I will add anti-emetic order PRN if nausea occurs after first treatment. Hold steroid use for now. Add dexamethasone if sxs increase after first treatment. Patient interested in discharge as soon as possible. If he is doing well could consider dc tomorrow or Friday from my perspective. THOM DIEZ MD Jan 08, 2017 15:07
[2017-01-08] MEDS ORDERED: PROCHLORPERAZINE 10 MG/2 ML VIAL. IV PRN (15:15)
[2017-01-08] MEDS ORDERED: ONDANSETRON ODT 4 MG TAB.RAPDIS. PO PRN (15:15)
[2017-01-09] MEDS: oxyCODONE/APAP 7.5/325 1 TAB TABLET PO PRN ×4 (02:29→14:41)
[2017-01-09 03:00] VITALS: BP 129/86
[2017-01-09 07:00] VITALS: BP 136/85
[2017-01-09] MEDS: hydroCHLOROthiazide 25 MG TABLET PO SCH (07:52)
[2017-01-09] MEDS: SERTRALINE 50 MG TABLET. PO SCH (07:53)
[2017-01-09] MEDS: LISINOPRIL 20 MG TABLET PO SCH (07:53)
[2017-01-09] MEDS: METOPROLOL TART IMMED RELEASE 25 MG TABLET. PO SCH (07:53)
[2017-01-09] MEDS: SMZ/TMP 400/80MG TABLET. PO SCH (07:53)
--- NOTE | 2017-01-09 08:39 | PDOC ---
Provider Note Provider Note less pain w/ duragesic- labs same , discussed mris w/ him - bone scan today- had his spinal lesion bx for dx- likely can go homr 01/10 after BS done, rad tx to continue 2 weeks MANAS GAINES MD Jan 09, 2017 08:39
[2017-01-09 11:00] VITALS: BP 108/78
--- NOTE | 2017-01-09 12:41 | PDOC ---
PULMONARY PROGRESS NOTES Subjective s/p IR guided biopsy of T9 mass Vitals Vital Signs Date Time Temp Pulse Resp B/P (MAP) Pulse Ox O2 Delivery O2 Flow Rate FiO2 01/09/17 11:15 100 Room Air 01/09/17 11:00 97.7 74 22 108/78 (88) 97.7 01/09/17 07:55 2.0 General: Alert, Oriented X4, No acute distress Lungs: Other (decrease bs) Cardiovascular: S1 Abdomen: Soft Neuro Exam: Alert Extremities: No Edema Skin: Warm Labs Laboratory Tests Test 01/07/17 15:20 01/07/17 16:00 White Blood Count 12.0 x10^3/uL (4.0-11.0) Red Blood Count 4.70 x10^6/uL (4.30-5.70) Hemoglobin 13.9 g/dL (13.0-17.5) Hematocrit 41.2 % (39.0-53.0) Mean Corpuscular Volume 88 fL (79-100) Mean Corpuscular Hemoglobin 30 pg (25-35) Mean Corpuscular Hemoglobin Concent 34 g/dL (31-37) Red Cell Distribution Width 13.8 % (11.5-14.5) Platelet Count 288 x10^3/uL (140-400) Neutrophils (%) (Auto) 78 % (31-73) Lymphocytes (%) (Auto) 12 % (24-48) Monocytes (%) (Auto) 8 % (0-9) Eosinophils (%) (Auto) 2 % (0-3) Basophils (%) (Auto) 0 % (0-3) Neutrophils # (Auto) 9.3 x10^3uL (1.8-7.7) Lymphocytes # (Auto) 1.5 x10^3/uL (1.0-4.8) Monocytes # (Auto) 1.0 x10^3/uL (0.0-1.1) Eosinophils # (Auto) 0.2 x10^3/uL (0.0-0.7) Basophils # (Auto) 0.0 x10^3/uL (0.0-0.2) Prothrombin Time 13.3 SEC (11.7-14.0) Prothromb Time International Ratio 1.1 (0.8-1.1) Sodium Level 138 mmol/L (136-145) Potassium Level 3.8 mmol/L (3.5-5.1) Chloride Level 99 mmol/L (98-107) Carbon Dioxide Level 27 mmol/L (21-32) Anion Gap 12 (6-14) Blood Urea Nitrogen 10 mg/dL (8-26) Creatinine 0.9 mg/dL (0.7-1.3) Estimated GFR (Cockcroft-Gault) 88.6 BUN/Creatinine Ratio 11 (6-20) Glucose Level 107 mg/dL (70-99) Calcium Level 9.4 mg/dL (8.5-10.1) Total Bilirubin 0.3 mg/dL (0.2-1.0) Aspartate Amino Transf (AST/SGOT) 18 U/L (15-37) Alanine Aminotransferase (ALT/SGPT) 35 U/L (16-63) Alkaline Phosphatase 70 U/L (46-116) Total Protein 7.6 g/dL (6.4-8.2) Albumin 3.2 g/dL (3.4-5.0) Albumin/Globulin Ratio 0.7 (1.0-1.7) Urine Collection Type Unknown Urine Color Straw Urine Clarity Clear Urine pH 7.0 Urine Specific Steele <=1.005 Urine Protein Negative mg/dL (NEG-TRACE) Urine Glucose (UA) Negative mg/dL (NEG) Urine Ketones (Stick) Negative mg/dL (NEG) Urine Blood Negative (NEG) Urine Nitrite Negative (NEG) Urine Bilirubin Negative (NEG) Urine Urobilinogen Dipstick 1.0 mg/dL (0.2 mg/dL) Urine Leukocyte Esterase Negative (NEG) Urine RBC Rare /HPF (0-2) Urine WBC 0 /HPF (0-4) Urine Squamous Epithelial Cells Occ /LPF Urine Bacteria 0 /HPF (0-FEW) Medications Active Scripts Medications Dose Route/Sig Max Daily Dose Days Date Category Bactrim 400-80 Mg Tablet (Sulfamethoxazole/Trimethoprim) 1 Each Tablet 2 Tab PO BID 01/07/17 Reported Baclofen 10 Mg Tablet 1 Tab PO TID 01/07/17 Reported Hydrocodone-Apap 7.5-325 (Hydrocodone Bit/Acetaminophen) 1 Each Tablet 1 Tab PO PRN Q6HRS PRN 01/07/17 Reported Metoprolol Tartrate 25 Mg Tablet 1 Tab PO BID 01/07/17 Reported Lisinopril-Hctz 20-25 Mg Tab (Lisinopril/Hydrochlorothiazide) 1 Each Tablet 1 Tab PO DAILY 01/07/17 Reported No Known Medications Prior To Admisstion (Info) Each 1 Each 01/03/17 Reported Impression . 1. Highly suspected stage IV bronchogenic cancer. 2. Abnormal CT of the chest with 3.5 cm right hilar mass, subcarinal adenopathy , right lower lobe postobstructive consolidation, these findings are highly suspicious for bronchogenic cancer. 3. Left spinal mass causing T9 destruction and involving the spinal cord. Patient so far has no symptoms of cord dysfunction 4. 25 years of tobacco use, suspect underlying COPD. Plan . 1. Discussed with patient and mother. prelim results of T9 mass biopsy c/w adenoCa 2. supportive care 3. Appreciate Dr Palomo recommendations 4. Patient will need a PET scan as an outpatient. 5. MRI of the thoracic and lumbar spine reviewed 6. chemo soon ok with home BAM MENCHACA MD Jan 09, 2017 12:41
--- NOTE | 2017-01-09 13:36 | PDOC ---
Provider Note Provider Note Day of palliative treatment to T9 and L2 mets. Now off floor. He did by report have some transient nausea after first treatment that was well controlled with Compazine. Impression: Metastatic bronchogenic carcinoma. Await final path from bx done yesterday. Ok to discharge now from my perspective and continue treatment as an outpatient. THOM DIEZ MD Jan 09, 2017 13:36
--- NOTE | 2017-01-09 14:23 | RAD ---
Radionuclide bone scan, 01/09/2017: History: Back pain Whole-body imaging was performed following IV injection of 24.7 mCi of technetium 99m MDP. No previous bone scan is available at this time for comparison purposes. The following findings are delineated: 1. There is mildly increased activity at the L2 level corresponding to the patient's known bone lesion. 2. There is mildly increased activity at the T8-9 level corresponding to the mass evident on the recent MR study. The left costovertebral articulation at T9 appears to be involved. 3. Mildly increased activity along the inferior aspect of the left SI joint region may be on a metastatic or arthritic basis. 4. Activity of the radionuclide about the skeleton the major joints is otherwise unremarkable. IMPRESSION: Abnormal activity at L2 and the T8-9 levels compatible with metastatic disease.
--- NOTE | 2017-01-09 14:34 | PDOC ---
PROGRESS NOTES Subjective Subjective c/c - f/u of lung ca Objective Objective Vital Signs Date Time Temp Pulse Resp B/P (MAP) Pulse Ox O2 Delivery O2 Flow Rate FiO2 01/09/17 12:15 100 Room Air 01/09/17 11:00 97.7 74 22 108/78 (88) 97.7 01/09/17 07:55 2.0 Intake and Output 01/09/17 07:00 Intake Total 720 ml Balance 720 ml Intake Oral 720 ml # Voids 8 Physical Exam Heart: Normal S1, Normal S2 General: Alert, Oriented X3 Lungs: Clear to auscultation Neuro: Normal speech Psych/Mental Status: Mental status NL Assessment Assessment Assessment/Plan 1. Right hilar and subcarinal mass with evidence of metastatic disease to the T9 spine clinically consistent with stage IV lung cancer. I discussed with pulmonology. s/p CT-guided biopsy 01/08/17. I discussed in detail with the patient regarding the clinical impression of lung cancer and the need for further investigation with a biopsy for histologic confirmation. This would also help define the type of lung cancer which would help in selecting systemic therapy. The patient was also anxious to know about the prognosis and I mentioned that this is consistent with stage IV malignancy which is incurable. Prelim results indicate adenocarcinoma. I will order biomarkers. f/u with me next week. 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 Consulted radiation oncology and palliative radiation started. I will order bone scan per radiology recommendation. 3. Brain MRI did not reveal any evidence of metastatic disease. I d/w Dr Gomez MRI report 01/08/17 - Brain: No evidence of intraparenchymal metastasis. Potential calvarial metastases, subtle. They are suspicious given findings in the thoracic spine. Consider bone scintigraphy. T-S spine MRI: Metastasis are seen involving the T9 and L2 vertebrae. The T9 metastasis extends to involve the posterior and left lateral epidural space resulting in moderate to severe left-sided central spinal canal stenosis and severe left lateral recess stenosis along with severe left T8-9 and T9-T10 neural foraminal stenosis. No additional metastasis is seen. Comment Review of Relevant I have reviewed the following items eduardo (where applicable) has been applied. Labs Laboratory Tests Test 01/07/17 15:20 01/07/17 16:00 White Blood Count 12.0 x10^3/uL (4.0-11.0) Red Blood Count 4.70 x10^6/uL (4.30-5.70) Hemoglobin 13.9 g/dL (13.0-17.5) Hematocrit 41.2 % (39.0-53.0) Mean Corpuscular Volume 88 fL (79-100) Mean Corpuscular Hemoglobin 30 pg (25-35) Mean Corpuscular Hemoglobin Concent 34 g/dL (31-37) Red Cell Distribution Width 13.8 % (11.5-14.5) Platelet Count 288 x10^3/uL (140-400) Neutrophils (%) (Auto) 78 % (31-73) Lymphocytes (%) (Auto) 12 % (24-48) Monocytes (%) (Auto) 8 % (0-9) Eosinophils (%) (Auto) 2 % (0-3) Basophils (%) (Auto) 0 % (0-3) Neutrophils # (Auto) 9.3 x10^3uL (1.8-7.7) Lymphocytes # (Auto) 1.5 x10^3/uL (1.0-4.8) Monocytes # (Auto) 1.0 x10^3/uL (0.0-1.1) Eosinophils # (Auto) 0.2 x10^3/uL (0.0-0.7) Basophils # (Auto) 0.0 x10^3/uL (0.0-0.2) Prothrombin Time 13.3 SEC (11.7-14.0) Prothromb Time International Ratio 1.1 (0.8-1.1) Sodium Level 138 mmol/L (136-145) Potassium Level 3.8 mmol/L (3.5-5.1) Chloride Level 99 mmol/L (98-107) Carbon Dioxide Level 27 mmol/L (21-32) Anion Gap 12 (6-14) Blood Urea Nitrogen 10 mg/dL (8-26) Creatinine 0.9 mg/dL (0.7-1.3) Estimated GFR (Cockcroft-Gault) 88.6 BUN/Creatinine Ratio 11 (6-20) Glucose Level 107 mg/dL (70-99) Calcium Level 9.4 mg/dL (8.5-10.1) Total Bilirubin 0.3 mg/dL (0.2-1.0) Aspartate Amino Transf (AST/SGOT) 18 U/L (15-37) Alanine Aminotransferase (ALT/SGPT) 35 U/L (16-63) Alkaline Phosphatase 70 U/L (46-116) Total Protein 7.6 g/dL (6.4-8.2) Albumin 3.2 g/dL (3.4-5.0) Albumin/Globulin Ratio 0.7 (1.0-1.7) Urine Collection Type Unknown Urine Color Straw Urine Clarity Clear Urine pH 7.0 Urine Specific Marcy <=1.005 Urine Protein Negative mg/dL (NEG-TRACE) Urine Glucose (UA) Negative mg/dL (NEG) Urine Ketones (Stick) Negative mg/dL (NEG) Urine Blood Negative (NEG) Urine Nitrite Negative (NEG) Urine Bilirubin Negative (NEG) Urine Urobilinogen Dipstick 1.0 mg/dL (0.2 mg/dL) Urine Leukocyte Esterase Negative (NEG) Urine RBC Rare /HPF (0-2) Urine WBC 0 /HPF (0-4) Urine Squamous Epithelial Cells Occ /LPF Urine Bacteria 0 /HPF (0-FEW) Medications Current Medications Fentanyl (Duragesic 50mcg/ Hr Patch) 1 patch Q3DAYS TD Last administered on 15:24; Start 01/07/17 at 16:00 Metoprolol Tartrate (Lopressor) 25 mg BID PO Last administered on 01/09/17 07: 53; Start 01/07/17 at 21:00 Oxycodone/ Acetaminophen (Percocet 7.5/ 325) 1 tab Q3HRS PRN PO PAIN Last administered on 01/09/17 11:15; Start 01/07/17 at 14:45 Lisinopril (Prinivil) 20 mg DAILY PO Last administered on 01/09/17 07:53; Start 01/08/17 at 09:00 Polyethylene Glycol (miraLAX PACKET) 17 gm BID PRN PO CONSTIPATION Last administered on 01/09/17 07:52; Start 01/07/17 at 14:45 Sertraline HCl (Zoloft) 50 mg DAILY PO Last administered on 01/09/17 07:53; Start 01/07/17 at 16:00 Hydrochlorothiazide (Hydrodiuril) 25 mg DAILY PO Last administered on 07:52; Start 01/07/17 at 17:00 Gadobutrol (Gadavist) 7 mmol 1X ONCE IV Last administered on 01/07/17 18:01; Start 01/07/17 at 17:45; Stop 01/07/17 at 17:46; Status DC Trimethoprim/ Sulfamethoxazole (Bactrim Ss) 2 tab BID PO Last administered on 07:53; Start 01/07/17 at 21:00 Lidocaine/Sodium Bicarbonate (Buffered Lidocaine 1%) 20 ml STK-MED ONCE IJ ; Start 01/08/17 at 10:28; Stop 01/08/17 at 10:29; Status DC Fentanyl Citrate (Fentanyl 2ml Vial) 100 mcg STK-MED ONCE .ROUTE ; Start at 10:52; Stop 01/08/17 at 10:53; Status DC Midazolam HCl (Versed) 5 mg STK-MED ONCE .ROUTE ; Start 01/08/17 at 10:52; Stop 01/08/17 at 10:53; Status DC Lidocaine/Sodium Bicarbonate (Buffered Lidocaine 1%) 20 ml 1X ONCE IJ Last administered on 01/08/17 11:15; Start 01/08/17 at 11:15; Stop 01/08/17 at 11:16 ; Status DC Midazolam HCl (Versed) 5 mg 1X ONCE IV Last administered on 01/08/17 11:21; Start 01/08/17 at 11:15; Stop 01/08/17 at 11:16; Status DC Fentanyl Citrate (Fentanyl 2ml Vial) 100 mcg 1X ONCE IV Last administered on 11:21; Start 01/08/17 at 11:15; Stop 01/08/17 at 11:16; Status DC Ondansetron HCl (Zofran) 4 mg PRN Q6HRS PRN IV NAUSEA/VOMITING; Start 01/08/17 at 15:00 Prochlorperazine Edisylate (Compazine) 10 mg PRN Q6HRS PRN IV NAUSEA/VOMITING 2ND CHOICE Last administered on 01/09/17 11:14; Start 01/08/17 at 15:15 Ondansetron HCl (Zofran Odt) 4 mg PRN Q6HRS PRN PO NAUSEA/VOMITING; Start 01/08 at 15:15 Active Scripts Active Reported Bactrim 400-80 Mg Tablet (Sulfamethoxazole/Trimethoprim) 1 Each Tablet 2 Tab PO BID Baclofen 10 Mg Tablet 1 Tab PO TID Hydrocodone-Apap 7.5-325 (Hydrocodone Bit/Acetaminophen) 1 Each Tablet 1 Tab PO PRN Q6HRS PRN Metoprolol Tartrate 25 Mg Tablet 1 Tab PO BID Lisinopril-Hctz 20-25 Mg Tab (Lisinopril/Hydrochlorothiazide) 1 Each Tablet 1 Tab PO DAILY No Known Medications Prior To Admisstion (Info) Each 1 Each Vitals/I & O Vital Sign - Last 24 Hours 01/08/17 01/08/17 01/08/17 01/08/17 16:00 19:00 20:00 21:53 Temp 97.5 97.5 Pulse 67 Resp 20 16 B/P (MAP) 136/82 (100) Pulse Ox 96 92 92 O2 Delivery Nasal Cannula Room Air Room Air Room Air O2 Flow Rate 2.0 01/08/17 01/08/17 01/09/17 01/09/17 21:54 23:00 02:29 03:00 Temp 97.7 97.9 97.7 97.9 Pulse 67 73 77 Resp 20 16 20 B/P (MAP) 136/82 120/83 (95) 129/86 (100) Pulse Ox 96 96 100 O2 Delivery Room Air Room Air Room Air 01/09/17 01/09/17 01/09/17 01/09/17 03:29 07:00 07:53 07:53 Temp 97.7 97.7 Pulse 74 77 77 Resp 16 22 B/P (MAP) 136/85 (102) 129/86 129/86 Pulse Ox 95 O2 Delivery Room Air 01/09/17 01/09/17 01/09/17 01/09/17 07:55 08:00 11:00 11:15 Temp 97.7 97.7 Pulse 74 Resp 22 B/P (MAP) 108/78 (88) Pulse Ox 100 94 100 O2 Delivery Room Air Room Air Room Air Room Air O2 Flow Rate 2.0 01/09/17 12:15 Pulse Ox 100 O2 Delivery Room Air Intake and Output 7/12/17 7/12/17 7/13/17 15:00 23:00 07:00 Intake Total 360 ml 240 ml 120 ml Balance 360 ml 240 ml 120 ml JACKIE BLACK MD Jan 09, 2017 14:33
[2017-01-09 15:00] VITALS: BP 154/62
[2017-01-09] MEDS ORDERED: FENT1PAT91 TD (16:38)
--- NOTE | 2017-01-10 08:02 | PDOC3 ---
Discharge Summary Visit Information Date of Discharge: Jan 09, 2017 Final Diagnosis lung cancer with metastatic lesion to T9,L2 , neurogenic pain Brief Hospital Course Allergies Allergies Coded Allergies Type Severity Reaction Last Updated Verified No Known Drug Allergies 01/03/17 No Vital Signs Vital Signs Date Time Temp Pulse Resp B/P (MAP) Pulse Ox O2 Delivery O2 Flow Rate FiO2 01/09/17 15:45 96 Room Air 2.0 01/09/17 15:00 96.1 72 22 154/62 (92) 96.1 Brief Hospital Course Mr. Membreno is a 51 old [sex] who presented with [ ]L thoracic pain from T9 colin, harleen did bx w/ path pending- dr burrell started rad tx to area w/ some pain benefit- brain mri clear, bone scan showed no new lesions- he is comfortable to dc on meds, seen by dr park, ashanti, terrell as well- will use duragesic 50 q 3 d, prn percocet- bx report rianna, more rad x 2 weeks, then chemo per dr park likely Discharge Information Condition at Discharge: Stable Disposition/Orders: D/C to Home Scheduled Baclofen (Baclofen), 1 TAB PO TID, (Reported) Fentanyl (DURAGESIC 50mcg/hr), 1 PATCH TD Q72H, (Reported) Lisinopril/Hydrochlorothiazide (Lisinopril-Hctz 20-25 Mg Tab), 1 TAB PO DAILY, ( Reported) Metoprolol Tartrate (Metoprolol Tartrate), 1 TAB PO BID, (Reported) Sulfamethoxazole/Trimethoprim (Bactrim 400-80 Mg Tablet), 2 TAB PO BID, ( Reported) Scheduled PRN Hydrocodone Bit/Acetaminophen (Hydrocodone-Apap 7.5-325 ), 1 TAB PO PRN Q6HRS PRN for PAIN, (Reported) Miscellaneous Medications Info (No Known Medications Prior To Admisstion), 1 EACH , (Reported) MANAS GAINES MD Jan 10, 2017 08:02
--- NOTE | 2017-01-10 09:30 | PATHOLOGY ---
PATHOLOGY REPORT * * * * * * * * FINAL DIAGNOSIS: Bone, "T-9 bone biopsy": - NON-SMALL CELL CARCINOMA, FAVOR ADENOCARCINOMA. COMMENT: This case is also reviewed by Dr. Mirlande Gomez. This case is discussed with Dr. Jackson Gomez 01/09/2017 at 9am. Clinical history of lung mass noted. Immunoperoxidase stains were performed and reveal the following results: positive CK7 favors adenocarcinoma. However TTF1 is negative and thus we cannot say for sure that primary is definitely lung. Suggest clinical correlation. Negative PSA and PSAP rules out prostate. Negative CK20 makes colon carcinoma unlikely. Additional immunostains ck5/6, calretinin and WT1 are also being ordered. TTF-1: negative P40: negative P63: focal weak CK7: positive CK20: negative PSA: negative PSA-P: negative (SHA:mgr; 01/09/2017) REPORT ELECTRONICALLY SIGNED BY: Michele Sanchez M.D. DATE/TIME: 01/10/2017 09:29 * * * * * * * * GROSS PATHOLOGY: Received in formalin labeled "Adi Soriano, T9 mass," are 4 distinct needle cores of mcmanus soft tissue ranging from 0.3 to 1.0 cm in length, which are submitted entirely in cassette A1, following brief decalcification. ([facility]; 01/08/17) INITIAL CPT CODE(S): A; 12988, 18269, 22077, 60291, 55735, 82575, 15700, 15129, 59971, 80705, 16213, 91815 Professional services performed [place] [place] [address] Technical services performed by [facility] at [address] [place] [address], [facility] [address] [address]. SPECIMEN(S) RECEIVED: A.T-9 bone biopsy CLINICAL HISTORY: T9 bone lesion, lung mass PATIENT: ADI SORIANO /AGE: 107/06/1965 (Age: 51) PATIENT #: [id number] ALT CASE #: SPECIMEN COLLECTION DATE: 01/08/2017 SPECIMEN RECEIVED DATE: 01/08/2017 [facility] - [address] [place] [address] - PHONE: [phone] * * * END OF REPORT * * *
== END 2017-01-09 17:15 | disposition home or self-care (01) | DRG 478 ==
LOC: 4 NORTH 13:13
PROVIDERS: ADMIT Family Medicine; ATTEND Family Medicine
PROC: 0PB43ZX Excision of Thoracic Vertebra, Percutaneous Approach, Diagnostic (ICD-10-PCS; principal; 2017-01-07)
DX: C79.51 Secondary malignant neoplasm of bone (principal); C34.91 Malignant neoplasm of unspecified part of right bronchus or lung; I10 Essential (primary) hypertension; J44.9 Chronic obstructive pulmonary disease, unspecified; M48.04 Spinal stenosis, thoracic region; R59.9 Enlarged lymph nodes, unspecified; F17.200 Nicotine dependence, unspecified, uncomplicated; Z80.0 Family history of malignant neoplasm of digestive organs; Z80.1 Family history of malignant neoplasm of trachea, bronchus and lung
CPT/HCPCS: 20225; 36415; 70553; 72157; 72158; 77012; 77280; 77300; 77412; 78306; 80053; 81001; 85027; 85610; 88271; 88274; 88275; 88307; 88311; 88341; 88342; 88360; 96374; 99152; A9503; A9585; C1887; J0780; J2250; J3010